=== PATIENT | male | born 1985 | race Caucasian/White ===

== ENCOUNTER 2023-09-04 12:56 | Emergency (ER) | payer OTHER ==
[~2023-09-04] VITALS: Ht 177.8 cm; Wt 93.9 kg
[2023-09-04 13:30] VITALS: BP 132/77; PULSE 72; RESP 20; TEMP 98.2; O2SAT 96
[2023-09-04] MEDS: BACITRACIN OINT 500 UNITS/GM PKT TP ONE (13:51)
[2023-09-04] MEDS: LIDOCAINE MPF 1% 10 MG/ML VIAL INJ ONE (13:51)
[2023-09-04] MEDS ORDERED: CEPH-588 PO (15:24)
[2023-09-04] MEDS ORDERED: BACI-418 TP (15:24)
[2023-09-04] MEDS ORDERED: IBUP-2213 PO (15:24)
== END 2023-09-04 15:30 | disposition home or self-care (01) ==
LOC: MED 12:56
DX: S61.412A Laceration without foreign body of left hand, initial encounter (principal); Z79.899 Other long term (current) drug therapy; W26.0XXA Contact with knife, initial encounter; Y93.89 Activity, other specified; Y92.89 Other specified places as the place of occurrence of the external cause; Y99.8 Other external cause status
CPT/HCPCS: 12002; 99283; J2001